=== PATIENT | female | born 1995 | race African-American/Black ===

== ENCOUNTER 2021-11-17 18:36 | Emergency (ER) | payer SELFPAY ==
[2021-11-17] MEDS ORDERED: Acetaminophen 500 MG TAB ONE (20:09)
[2021-11-18 15:32] LABS: SARS-CoV-2 PCR by NAA DETECTED (NotDetected)
== END 2021-11-17 20:36 | disposition home or self-care (01) ==
LOC: CSHERS 18:36
DX: U07.1 COVID-19 (principal)
CPT/HCPCS: 99283; U0003; U0005

== ENCOUNTER 2023-06-13 23:44 | Emergency (ER) | payer SELFPAY ==
[2023-06-14] MEDS ORDERED: hydrOXYzine 25 MG TAB ONE (00:01)
== END 2023-06-14 00:18 | disposition home or self-care (01) ==
LOC: CSHERS 23:44
DX: F12.90 Cannabis use, unspecified, uncomplicated (principal)
CPT/HCPCS: 99284